=== PATIENT | male | born 1935 | race Caucasian/White ===

== ENCOUNTER 2019-09-11 01:54 | Emergency (ER) | payer OTHER ==
[~2019-09-11] VITALS: Ht 172.7 cm; Wt 78.5 kg
[2019-09-11] MEDS ORDERED: ASA81BEC PO (02:03)
[2019-09-11] MEDS ORDERED: FLOMAX0.4 MG PO (02:04)
[2019-09-11] MEDS ORDERED: FISH OIL 1,0001 EAC9 PO (02:04)
[2019-09-11] MEDS ORDERED: VITAMIN (02:04)
[2019-09-11 03:00] VITALS: BP 148/64
--- NOTE | 2019-09-11 08:15 | EKG ---
[facility] [place] [address] ELECTROCARDIOGRAM REPORT Name: OK WANG Room #: DEP [facility]#: [id number] Admission: 09/11/19 Attend Phys: Discharge: 09/11/19 Date of : 39 Report #: [id number] THIS REPORT FOR: cc: Pedro Ram Kent DO Lundgren, Craig H. MD [facility] THIS REPORT FOR: //name// [facility] ED Test Date: 2019-09-11 Test Time: 02:03:40 Pat Name: OK WANG Department: Room: Gender: It Project Coordinator: : 1935 Requested By: Kei Kowalski Order Number: [id number] MD: Qasim Stephens Measurements Intervals [place] Rate: 67 P: 65 WA: 153 QRS: 50 QRSD: 149 T: 11 QT: 425 QTc: 449 Interpretive Statements Sinus rhythm Right bundle branch block No previous ECG available for comparison Electronically Signed On 09-11-2019 7:45:32 CDT by Qasim Stephens [email or web address] <ELECTRONICALLY SIGNED> By: Qasim Stephens MD, FAC 09/11/19 0745 [id number] Qasim Stephens MD, FACC /EPI
== END 2019-09-11 03:01 | disposition home or self-care (01) ==
LOC: ER 01:54
DX: S46.911A Strain of unspecified muscle, fascia and tendon at shoulder and upper arm level, right arm, initial encounter (principal); S46.912A Strain of unspecified muscle, fascia and tendon at shoulder and upper arm level, left arm, initial encounter; M54.2 Cervicalgia; Z79.899 Other long term (current) drug therapy; Z79.82 Long term (current) use of aspirin; Z88.8 Allergy status to other drugs, medicaments and biological substances; X58.XXXA Exposure to other specified factors, initial encounter; Y93.89 Activity, other specified; Y92.89 Other specified places as the place of occurrence of the external cause; Y99.8 Other external cause status

== ENCOUNTER 2021-01-16 12:36 | Emergency (ER) | payer OTHER ==
[~2021-01-16] VITALS: Ht 172.7 cm; Wt 79.8 kg
--- NOTE | ~2021-01-16 | EMS ---
[address] [address] EMS Patient Care Report Name: OK WANG Room #: DEP [facility]#: [id number] Admission: 01/16/21 Attend Phys: Discharge: 01/16/21 Date of : 39 Report #: [id number] THIS REPORT FOR: //name// Report Transmitted: 01/17/2021 09:53 EMS Care Summary [facility] Incident [id number] @ 01/16/2021 11:50 Incident Location [address] [place] [address]/[place] [address] Patient OK WANG Male, 85 Years 1935 Patient Address [address] [place] [address] Patient History Enlarged prostate, Patient Allergies No known allergies, Patient Medications Flomax, Chief Complaint Dizziness Disposition Transported No Lights/[place] Dispatch Reason Sick Person Transported To [facility] Narrative [facility] units dispatched to the residence of an 85 year old male pt with a chief complaint of dizziness. Upon arrival crew located pt sitting in a [address] [address] EMS Patient Care Report Name: OK WANG Room #: DEP [facility]#: [id number] Admission: 01/16/21 Attend Phys: Discharge: 01/16/21 Date of : 39 Report #: [id number] recliner. Pt presented with a patent airway and warm dry skin. Pt stated that while he was outside attaching his boat to his truck he started getting dizzy. Pt stated that he had been sitting in his chair since and had been unable to stop the dizziness. Pt was placed on stretcher by crew and secured using straps. 12 lead EKG was preformed and no ST segment elevation was noted at this time. 20 g IV was established in pts left AC. Blood glucose check was 115. Pt stated that the dizziness got worse when he tried to walk around and when he moved his head from side to side. Pt denied hx of vertigo. Pt stated that he took his blood pressure using his at home machine and reported it was elevated more then usual. Pt denied chest pain of SOA. Pt denied nausea and vomiting. Pt denied a changes in LOC. Pt was transported without incident to [facility] and care was transferred to ED staff. Initial Vitals @12:03P: 73,R: 11, @12:13P: 72,R: 51,CO: 0,SpO2: 96, @12:17P: 78,R: 46,BP: 188/67,SpO2: 96, @12:02P: 80,BP: 181/82,Pain: 0/10,GCS: 15, @12:27P: 79,R: 17,Pain: 0/10,GCS: 15,CO: 2,SpO2: 96, Assessments @11:57MENTAL:No Abnormalities,SKIN:No Abnormalities,HEENT:Head/Face: No Abnormalities,Eyes: No Abnormalities,Neck/Airway: No Abnormalities,LUNG SOUNDS:General: No Abnormalities,Left Upper: No Abnormalities,Right Upper: No Abnormalities,Left Lower: No Abnormalities,Right Lower: No Abnormalities,ABDOMEN:General: No Abnormalities,Left Upper: No Abnormalities,Right Upper: No Abnormalities,Left Lower: No Abnormalities,Right Lower: No Abnormalities,PELVIS//GI:No Abnormalities,EXTREMITIES:Capillary Refill: Right Upper: < 2 Sec,Left Arm: No Abnormalities,Right Arm: No Abnormalities,Left Leg: No Abnormalities,Right Leg: No Abnormalities,PULSE:Radial: 2+ Normal,NEURO:No Abnormalities,@12:10MENTAL:No Abnormalities,SKIN:No Abnormalities,HEENT:Head/Face: No Abnormalities,Eyes: No Abnormalities,Neck/Airway: No Abnormalities,LUNG SOUNDS:General: No Abnormalities,Left Upper: No Abnormalities,Right Upper: No Abnormalities,Left Lower: No Abnormalities,Right Lower: No Abnormalities,ABDOMEN:General: No Abnormalities,Left Upper: No Abnormalities,Right Upper: No Abnormalities,Left Lower: No Abnormalities,Right Lower: No Abnormalities,PELVIS//GI:No Abnormalities,EXTREMITIES:Capillary Refill: Right Upper: < 2 Sec,Left Arm: No Abnormalities,Right Arm: No Abnormalities,Left Leg: No Abnormalities,Right Leg: No Abnormalities,PULSE:Radial: 2+ Normal,NEURO: Impression Dizziness Procedures @12:07Saline Lock 0cc (20 ga) Site: Antecubital-LeftResponse: [address] [address] EMS Patient Care Report Name: OK WANG Room #: DEP [facility]#: [id number] Admission: 01/16/21 Attend Phys: Discharge: 01/16/21 Date of : 39 Report #: [id number] UnchangedSucceeded@11:57ALS AssessmentResponse: UnchangedSucceeded@12:0312-Lead ECGResponse: UnchangedSucceeded Timeline 11:49,Call Received 11:49,Psap Call 11:50,Dispatched 11:51,En Route 11:56,On Scene 11:57,At Patient 11:57,ALS Assessment,Response: UnchangedSucceeded, 12:02,BP: 181/82 M,PULSE: 80,RR: R,SPO2: Ox,ETCO2: ,BG: ,PAIN: 0,GCS: 15, 12:03,12-Lead ECG,Response: UnchangedSucceeded, 12:03,BP: / M,PULSE: 73,RR: 11 R,SPO2: Ox,ETCO2: ,BG: ,PAIN: ,GCS: , 12:06,Depart Scene 12:07,Saline Lock 0cc 20 ga Site: Antecubital-Left,Response: UnchangedSucceeded, 12:13,BP: / M,PULSE: 72,RR: 51 R,SPO2: 96 Ox,ETCO2: ,BG: ,PAIN: ,GCS: , 12:17,BP: 188/67 M,PULSE: 78,RR: 46 R,SPO2: 96 Ox,ETCO2: ,BG: ,PAIN: ,GCS: , 12:27,BP: / M,PULSE: 79,RR: 17 R,SPO2: 96 Ox,ETCO2: ,BG: ,PAIN: 0,GCS: 15, 12:33,At Destination 12:43,Call Closed Disclaimer v1.1 Copyright 2020 [employer] This EMS Care Summary contains data elements from the applicable legal record (which may be displayed differently). It is designed to provide pertinent information for the following purposes: continuity of care, clinical quality, and state data reporting. The complete legal record is available to ED staff and administrators of the receiving hospital in [employer]'s Patient Tracker. All data is provided "as is."
--- NOTE | ~2021-01-16 | EMS ---
[address] [address] EMS Patient Care Report Name: OK WANG Room #: DEP [facility]#: [id number] Admission: 01/16/21 Attend Phys: Discharge: 01/16/21 Date of : 39 Report #: [id number] THIS REPORT FOR: //name// Report Transmitted: 01/17/2021 10:53 EMS Care Summary [facility] Incident [id number] @ 01/16/2021 11:48 Incident Location [address] [place] [address] Patient OK WANG Male, 85 Years 1935 Patient Address [address] [place] [address] Patient History None Reported, Patient Medications Flomax, Chief Complaint Dizziness Disposition Patient Treated, Transferred Care to Another EMS Professional Dispatch Reason Sick Person Transported To [facility] Narrative Dispatched to a report of dizziness. Due to Medic 52 being on another call MA is requested and [facility] Medic 43 is enroute to the call. Arrived on scene to find Pt sitting in chair in living room. Pt states he got up early this morning to go fishing and began feeling dizzy while preparing to leave. Pt canceled his [facility] [address] [place] [address] EMS Patient Care Report Name: OK WANG Room #: DEP ER [facility]#: [id number] Admission: 01/16/21 Attend Phys: Discharge: 01/16/21 Date of : 39 Report #: [id number] fishing outing and remained home but still felt dizzy on standing throughout the morning. Pt is AOx4 and FOWLER. Pt has a strong radial pulse with no JVD and his trachea appears midline. Pt has adequate equal chest wall expansion bilaterally with no complaint of dyspnea (pt states that when he gets up and moves he gets out of breath). Pt denies chest pain and any recent trauma. [facility] Medic 43 arrives on scene very soon after and care is transferred to them. Dizziness Check vitals, Care transferred to [facility]. Initial Vitals @11:57P: 85,SpO2: 97, @11:57P: 80,SpO2: 97, @11:56P: 85,R: 16,BP: 197/93,Pain: 0/10,GCS: 15,SpO2: 97,Revised Trauma: 12, Impression Dizziness Timeline 11:45,Call Received 11:45,Psap Call 11:48,Dispatched 11:49,En Route 11:53,On Scene 11:54,At Patient 11:56,BP: 197/93 M,PULSE: 85,RR: 16 R,SPO2: 97 Ox,ETCO2: ,BG: ,PAIN: 0,GCS: 15, 11:57,BP: / M,PULSE: 85,RR: R,SPO2: 97 Ox,ETCO2: ,BG: ,PAIN: ,GCS: , 11:57,BP: / M,PULSE: 80,RR: R,SPO2: 97 Ox,ETCO2: ,BG: ,PAIN: ,GCS: , 12:06,Depart Scene 12:07,Call Closed Disclaimer v1.1 Copyright 2020 [employer] This EMS Care Summary contains data elements from the applicable legal record (which may be displayed differently). It is designed to provide pertinent information for the following purposes: continuity of care, clinical quality, and state data reporting. The complete legal record is available to ED staff and administrators of the receiving hospital in [employer]s Patient Tracker. All data is provided "as is."
[~2021-01-16 12:36] MED LIST: ASA81BEC PO; FISH OIL 1,0001 EAC9 PO; FLOMAX0.4 MG PO; VITAMIN
--- NOTE | 2021-01-16 13:02 | EKG ---
[address] [place] [address] ELECTROCARDIOGRAM REPORT Name: OK WANG RAFAEL Room #: PRE M.R.#: [id number] Admission: Attend Phys: Discharge: Date of : 39 Report #: [id number] [facility] ED Test Date: 2021-01-16 Test Time: 12:41:11 Pat Name: OK WANG Department: Room: Gender: Manager Bridge: IDA : 1935 Requested By: Marley Garzon Order Number: [id number] MD: Qasim Stephens Measurements Intervals [place] Rate: 64 P: 64 VT: 149 QRS: 66 QRSD: 153 T: 29 QT: 437 QTc: 451 Interpretive Statements Sinus rhythm Right bundle branch block Compared to ECG 09/11/2019 02:03:40 No significant changes Electronically Signed On 01-16-2021 13:02:43 CDT by Qasim Stephens [email or web address] <ELECTRONICALLY SIGNED> By: Qasim Stephens MD, [facility] 01/16/21 1302 1241 1241 Qasim Stephens MD, FACC /EPI
[2021-01-16 13:21] LABS: ABSOLUTE NEUTROPHILS 5.9 thou/uL (1.4-8.2); BASOPHILS 0.4 % (0.0-2.0); EOSINOPHILS 0.9 % (0.0-3.0); HEMATOCRIT 42.6 % (42.0-52.0); HEMOGLOBIN 14.5 gm/dL (14.0-18.0); MCH 32.2 pg (26.0-34.0); MCHC 34.1 g/dL (28.0-37.0); MCV 94.2 fL (80.0-100.0); MONOCYTES 7.3 % (1.0-8.0); PLATELET COUNT 274 thou/uL (150-400); POLYS 62.4 % (36.0-66.0); RBC 4.52 mil/uL (4.50-6.00); RDW 12.9 % (10.5-14.5); WBC 9.5 thou/uL (4.0-11.0)
[2021-01-16 13:25] LABS: CALCIUM 9.2 mg/dL (8.5-10.1); CREATININE 1.2 mg/dL (0.7-1.3); POTASSIUM 4.2 mmol/L (3.5-5.1)
[2021-01-16] MEDS ORDERED: MECLIZINE HCL12.5 MG PO (15:05)
[2021-01-16 15:15] VITALS: BP 158/77
== END 2021-01-16 15:15 | disposition home or self-care (01) ==
LOC: ER 12:36
PROVIDERS: Emergency Medicine
DX: H81.399 Other peripheral vertigo, unspecified ear (principal); Z98.890 Other specified postprocedural states; Z79.82 Long term (current) use of aspirin; Z79.899 Other long term (current) drug therapy; Z88.8 Allergy status to other drugs, medicaments and biological substances